=== PATIENT | male | born 1935 | race Caucasian/White ===

== ENCOUNTER 2016-08-02 05:43 | Observation (INO) | payer MEDICARE, OTHER ==
[~2016-08-02] VITALS: Ht 175.3 cm; Wt 74.0 kg
[~2016-08-02 05:43] MED LIST: AMIO200T42 PO; ASCO10004 PO; ASPI-496 PO; CHOL200024 PO; CLOP75TA PO; DABI150C PO; EZET10TA3 PO; FURO20TA3 PO; GLUCOSAMINE 1,1 EACH PO; HYDR25TA6 PO; ISOS120T2 PO; LISI-170 PO; LISI5TAB7 PO; METO-93 PO; METO25TA91 PO; MULT1TAB60 PO; OMEG1CAP12 PO; ROSU20TA PO; ROSU40TA PO; UBID100C11 PO
[2016-08-02] MEDS ORDERED: LACTATED RINGERS 1,000 ML IV SCH (06:26)
[2016-08-02] MEDS ORDERED: TRANEXAMIC ACID 100 MG/ML, 10ML ONE (06:47)
[2016-08-02] MEDS ORDERED: BUPIVACAINE/PF 0.5% ONE (06:47)
[2016-08-02] MEDS ORDERED: LIDOCAINE/MPF 2%-EPI 1:200K, 20 ML ONE (06:48)
[2016-08-02] MEDS ORDERED: THROMBIN 5,000 UNIT VIAL TP ONE (06:48)
[2016-08-02] MEDS ORDERED: VANCOMYCIN 1,000 MG ONE (06:48)
[2016-08-02] MEDS ORDERED: FENTANYL PF 250 MCG/5ML ONE (06:54)
[2016-08-02] MEDS ORDERED: MIDAZOLAM 1 MG/ML, 2ML ONE (06:54)
[2016-08-02] MEDS ORDERED: PROPOFOL 10 MG/ML, 20ML ONE (07:31)
[2016-08-02] MEDS ORDERED: CEFAZOLIN 1,000 MG ONE (07:31)
[2016-08-02] MEDS ORDERED: ROCURONIUM 10 MG/ML ONE (07:31)
[2016-08-02] MEDS ORDERED: NEOSTIGMINE 1 MG/ML, 10ML ONE (07:31)
[2016-08-02] MEDS ORDERED: GLYCOPYRROLATE 0.2MG/1ML ONE (07:31)
[2016-08-02] MEDS ORDERED: SUCCINYLCHOLINE 20 MG/ML, 10ML ONE (07:31)
[2016-08-02] MEDS ORDERED: ONDANSETRON 2MG/ML, 2ML ONE (07:31)
[2016-08-02] MEDS ORDERED: DEXAMETHASONE 4 MG/ML, 1ML ONE (07:31)
[2016-08-02] MEDS ORDERED: BUPIVACAINE LIPOSOME/PF INFIL ONE (08:00)
[2016-08-02] MEDS ORDERED: FENTANYL PF 100 MCG/2ML IV PRN (09:00)
[2016-08-02] MEDS ORDERED: MEPERIDINE/PF 25MG/0.5ML IVPush PRN (09:00)
[2016-08-02] MEDS ORDERED: PROMETHAZINE 25 MG/ML, 1ML IV PRN (09:00)
[2016-08-02] MEDS ORDERED: hydrALAzine 20 MG/ML, 1ML IV PRN (09:00)
[2016-08-02] MEDS ORDERED: MIDAZOLAM 1 MG/ML, 2ML IV PRN (09:00)
[2016-08-02] MEDS ORDERED: ONDANSETRON 2MG/ML, 2ML IVPush PRN (09:00)
[2016-08-02] MEDS ORDERED: OXYcodone 5 MG/5 ML ORAL.SOL UDC PO PRN (09:00)
[2016-08-02] MEDS ORDERED: METOPROLOL 1 MG/ML, 5ML IV PRN (09:00)
[2016-08-02] MEDS ORDERED: HYDROmorphone 1 MG/ML, 1ML IV PRN (09:00)
[2016-08-02] MEDS ORDERED: ALBUTEROL/IPRATROPIUM 2.5MG/0.5MG, 3 ML NPPB PRN (09:00)
[2016-08-02] MEDS ORDERED: EPHEDRINE 50 MG/ML, 1ML IVPush PRN (09:00)
[2016-08-02] MEDS ORDERED: ACETAMINOPHEN 325 MG TABLET PO PRN ×2 (09:00→09:30)
[2016-08-02] MEDS ORDERED: LABETALOL 5MG/ML, 20ML IV PRN (09:00)
[2016-08-02] MEDS ORDERED: ALBUTEROL SULFATE 2.5 MG/3 ML NPPB PRN (09:00)
[2016-08-02] MEDS ORDERED: PHARMACY MAY ADJ FOR RENAL FX MC PRN (09:30)
[2016-08-02] MEDS ORDERED: MAGNESIUM HYDROXIDE 8%, 30ML UDC PO PRN (09:30)
[2016-08-02] MEDS ORDERED: DIAZEPAM 2 MG TABLET PO PRN (09:30)
[2016-08-02] MEDS ORDERED: SENNA/DOCUSATE TABLET PO PRN (09:30)
[2016-08-02] MEDS ORDERED: BISACODYL 10 MG SUPP PR PRN (09:30)
[2016-08-02] MEDS ORDERED: HYDROmorphone 2MG TABLET PO PRN (09:30)
[2016-08-02] MEDS ORDERED: ACETAMINOPHEN 650 MG/20.3 ML UDC ONE (10:04)
[2016-08-02] MEDS ORDERED: HYDROmorphone 1 MG/ML, 1ML ONE (10:04)
[2016-08-02] MEDS ORDERED: FENTANYL PF 100 MCG/2ML ONE (10:04)
[2016-08-02] MEDS ORDERED: OXYcodone 5 MG/5 ML ORAL.SOL UDC ONE (10:05)
[2016-08-02 10:19] LABS: IS PT STATUS REG ER OR PRE ER? NO
[2016-08-02] MEDS: METOPROLOL SUCCINATE 50 MG TAB.ER.24H PO SCH (12:54)
[2016-08-02] MEDS: LISINOPRIL 5 MG TABLET PO SCH ×2 (12:55→21:03)
[2016-08-02] MEDS: OXYcodone/APAP 5/325MG TABLET PO PRN ×3 (14:42→20:08)
[2016-08-02 14:54] VITALS: BP 164/87
[2016-08-02] MEDS: CEFAZOLIN PMX 1GM/50ML 50 ML IVPB SCH ×2 (15:37→23:30)
[2016-08-02] MEDS ORDERED: TAMSULOSIN 0.4 MG CAP.ER.24H PO ONE (17:00)
[2016-08-02 19:54] VITALS: BP 137/75
[2016-08-02] MEDS ORDERED: EZETIMIBE 10 MG TABLET PO SCH (21:00)
[2016-08-02 23:56] VITALS: BP 107/63
[2016-08-03 04:21] VITALS: BP 102/65
[2016-08-03 07:50] VITALS: BP 106/40
[2016-08-03] MEDS ORDERED: FUROSEMIDE 40 MG TABLET PO SCH (09:00)
[2016-08-03] MEDS ORDERED: AMIODARONE 200 MG TABLET PO SCH (09:00)
[2016-08-03] MEDS: OXYcodone/APAP 5/325MG TABLET PO PRN (09:27)
[2016-08-03] MEDS: METOPROLOL SUCCINATE 50 MG TAB.ER.24H PO SCH (09:28)
[2016-08-03] MEDS: LISINOPRIL 5 MG TABLET PO SCH (09:28)
== END 2016-08-03 10:15 | disposition home or self-care (01) ==
LOC: OUT 05:43 → 4NOR 11:02 → OUT 16:39
PROVIDERS: ADMIT Orthopaedic Surgery Orthopaedic Surgery of the Spine; ATTEND Orthopaedic Surgery Orthopaedic Surgery of the Spine
DX: M48.06 Spinal stenosis, lumbar region (principal); G81.91 Hemiplegia, unspecified affecting right dominant side; Z98.890 Other specified postprocedural states; I25.10 Atherosclerotic heart disease of native coronary artery without angina pectoris
CPT/HCPCS: 36415; 63030; 63035; 72100; 84484; 96365; 96375; 97116; 97162; 97530; C9290; G0378; J0330; J0690; J1100; J2250; J2405; J2704; J2710; J3010; J3370; J3490; J7120